=== PATIENT | female | born 1975 | race Caucasian/White ===

== ENCOUNTER 2024-06-06 19:58 | Emergency (ER) | payer OTHER, SELFPAY ==
[2024-06-06] VITALS (11 sets, daily range): BP systolic 110–122; BP diastolic 83–87; PULSE 69–85; RESP 12–17; TEMP 36.4–36.7; O2SAT 91–97
--- NOTE | ~2024-06-06 | CT_ITS ---
EXAMINATION: CTA brain carotid DATE: 06/06/2024 21:27 INDICATION: Unresponsiveness. Dizziness. TECHNIQUE: Computed tomographic angiography (CTA) of the head was performed without and with 100 mL O mnipaque-350 intravenous contrast. CTA of the neck was performed with intravenous contrast. Automated exposure control and iterative reconstruction technique were employed. The dose-length product was 1 844.63 mGy-cm. Maximum intensity projection and volume rendered 3D-reconstructions were created by guero weathers technologist on a separate workstation. COMPARISON: None. FINDINGS: HEAD CTA: There is no intracranial hemorrhage, acute infarction, or abnormal intracranial mass lesion . The ventricles are normal in size. The paranasal sinuses are clear. The mastoid air cells are eliane l. The orbits are normal. The vertebral arteries are codominant. There is no significant stenosis of basilar artery or the posterior cerebral arteries. There is no significant stenosis of intracranial i nternal arteries or anterior or middle cerebral arteries. Anterior communicating artery is normal. Th ere is no aneurysm. Posterior communicating arteries are not identified. NECK CTA: There is mild emphysema. There are innumerable nodules in the lungs measuring up to 3 mm, l ikely benign. There are no pathologically enlarged lymph nodes. There is no significant stenosis of t he vertebral arteries. There is plaque in the proximal internal carotid arteries. There is 12% stenos is of the proximal right internal carotid artery relative to normal distal artery lumen diameter (LION CET criteria). There is 0% stenosis of the proximal left internal carotid artery relative to normal d istal artery lumen diameter. There is moderate cervical spondylosis. IMPRESSION: 1. Normal brain. 2. No aneurysm or significant intracranial arterial stenosis. 3. 12% stenosis of the proximal right internal carotid artery relative to normal distal artery lumen diameter (NASCET criteria). 4. 0% stenosis of the proximal left internal carotid artery relative to normal distal artery lumen di ameter. Reviewed, dictated and finalized at location A. IMPRESSION: 1. Normal brain. 2. No aneurysm or significant intracranial arterial stenosis. 3. 12% stenosis of the proximal right internal carotid artery relative to eliane l distal artery lumen diameter (NASCET criteria). 4. 0% stenosis of the proximal left internal carotid artery relative to normal distal artery lumen diameter.
--- NOTE | ~2024-06-06 | XR_ITS ---
EXAMINATION: XR chest 1V DATE: 06/06/2024 21:22 INDICATION: Syncope. TECHNIQUE: A single frontal view of the chest was obtained. COMPARISON: None. FINDINGS: There is no pneumonia, pleural effusion, or pneumothorax. The heart size is normal. IMPRESSION: 1. No acute cardiopulmonary disease. Reviewed, dictated and finalized at location A.
--- NOTE | 2024-06-06 20:05 | ECG_ITS ---
Test Date: 2024-06-06 20:13:40 Measurements Intervals [place] Rate: 73 P: 60 LA: 163 QRS: -47 QRSD: 95 T: 53 QT: 400 QTc: 441 Interpretive Statements SINUS RHYTHM LEFT AXIS DEVIATION [QRS AXIS < -30] INCOMPLETE RIGHT BUNDLE BRANCH BLOCK [90+ ms QRS DURATION, TERMINAL R IN V1/V2, 40+ ms S IN I/aVL/V4/V5/V6] NONSPECIFIC T-WAVE ABNORMALITY ABNORMAL ECG No previous ECG available for comparison Electronically Signed On 06-07-2024 13:16:52 CDT by Gerardo Del Toro M.D.
--- NOTE | 2024-06-06 20:05 | PC.NURSE ---
Patient states that she and her spouse had covid last week.
--- NOTE | 2024-06-06 20:09 | ED.DIZZY ---
HPI - Dizziness General Chief Complaint: Dizziness <MARY KATE Chase Last Filed: 06/07/24 01:18> Stated Complaint: dizzy, nausea, diaphoretic, L arm tingling <MARY KATE Chase Last Filed: 06/07/24 01:18> Time Seen by Provider: 06/06/24 20:02 <MARY KATE Chase Last Filed: 06/07/24 01:18> Source: patient <MARY KATE Chase Last Filed: 06/07/24 01:18> Mode of arrival: ambulatory <MARY KATE Chase Last Filed: 06/07/24 01:18> Limitations: no limitations <MARY KATE Chase Last Filed: 06/07/24 01:18> History of Present Illness HPI Narrative: This is a 48-year-old female with PMH of HTN who presents to the ED via EMS for chief complaint dizziness pain just prior to arrival. Per EMS they were called out for patient being unresponsive, however patient quickly became responsive on arrival. EMS states that the patient has been A&O x4 for them, but diaphoretic. 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 States that whenever she sits or stands up she becomes very lightheaded and feels like she will pass out. She states that she started to feel dizzy 1-2 hours ago and it does feel like everything spinning. She also reports some ear pain. Endorses left arm tingling. states that she and her had COVID last week. Denies fevers, chills , chest pain, shortness of breath, vomiting, diarrhea, abdominal pain, urinary symptoms. <MARY KATE Chase Last Filed: 06/07/24 01:18> Related Data Allergies/Adverse Reactions: Allergies Allergy/AdvReac Type Severity Reaction Status Date / Time Penicillins Allergy Swelling Verified 06/06/24 20:04 <MARY KATE Chase Last Filed: 06/07/24 01:18> Review of Systems Review of Systems: All systems as dictated in HPI <Seng Champion PA-C - Last Filed: 06/07/24 01:18> Exam Narrative: GENERAL: Well-appearing, well-nourished, and in no acute distress. HEAD: Normocephalic, atraumatic. EYES: PERRLA and EOMI. ENT: Nares clear, no rhinorrhea or epistaxis. Mucous membranes moist. Oropharynx without tonsillar hypertrophy exudate or other lesions. NECK: Supple. No adenopathy or masses. CHEST: No respiratory distress. Clear to auscultation. No wheezes rales or rhonchi HEART: Regular rate and rhythm. No murmur heard. Normal peripheral pulses. ABDOMEN: Soft, nontender, nondistended, normal active bowel sounds. MSK: Normal range of motion. No edema. SKIN: Warm, dry, no rash. NEURO: Alert and oriented x4. Horizontal nystagmus, Worse with turning head to the right.. Negative pronator drift bilaterally No dysarthria. Head impulse test causes worsening dizziness with rotated to the right. nystagmus is horizontal and unidirectional test of skew shows no skew deviation PSYCH: Normal mood and affect. <Seng Champion PA-C - Last Filed: 06/07/24 01:18> Course Course Emergency Course: Re-evaluated the patient. Paresthesias have resolved. Not feeling overtly short of breath however nursing staff noted she was a little bit hypoxic in the 89-90 range on room air. Was placed on 1 L and saturating well. 2nd re-evaluation 2200: She is feeling improved overall. Was able to walk around the department without assistance and did not desaturate on room air. Nystagmus has improved. <Seng Champion PA-C - Last Filed: 06/07/24 01:18> DELPHI PROGRAMMER/PA Physician Supervision For this patient encounter, I reviewed the DELPHI PROGRAMMER or PA documentation, treatment plan, and medical decision making and had [id number] time with this patient. I performed all aspects of the MDM as documented. <Miley Erwin MD - Last Filed: 06/07/24 03:26> Vital Signs Vital signs: Vital Signs Temperature 97.6 F 06/06/24 19:58 Pulse Rate 73 06/06/24 19:58 Respiratory Rate 16 06/06/24 19:58 Blood Pressure 112/83 06/06/24 19:58 Pulse Oximetry 95 06/06/24 19:58 Oxygen Delivery R
[2024-06-06] MEDS: diphenhydrAMINE HCl INJ 50 MG/ML VIAL IV PUSH (20:17)
[2024-06-06] MEDS: SODIUM CHLORIDE 0.9% IV 1,000 ML 999 ML IV CONT (20:17)
[2024-06-06] MEDS: METOCLOPRAMIDE HCL INJ 10 MG/2 ML VIAL IV PUSH (20:18)
[2024-06-06 20:30] LABS: Basophils Absolute Auto 0.1 K/mm3 (0.0-0.1); Basophils Percent Auto 0.8 % (0.2-1.2); Eosinophils Absolute Auto 0.1 K/mm3 (0-0.3); Eosinophils Percent Auto 1.1 % (0-4.4); Hematocrit 46.8 % (37.0-47.0); Hemoglobin 15.6 g/dL (12.0-15.0); Immature Granulocyte Absolute 0.08 K/mm3 (0.00-0.031); Immature Granulocyte Percent A 0.7 % (0-0.5); Immature Platelet Fraction Pct 19.8 % (0.9-11.2); Lymphocytes Absolute Auto 3.11 K/mm3 (0.9-3.2); Lymphocytes Percent Auto 26.7 % (18.3-44.2); Mean Corpuscular HGB Conc 33.3 g/dl (32-36); Mean Platelet Volume 12.1 fl (7.4-10.4); Monocytes Absolute Auto 0.6 K/mm3 (0.1-0.6); Monocytes Percent Auto 5.4 % (2.6-8.5); Neutrophils Absolute Auto 7.6 K/mm3 (1.3-6.7); Neutrophils Percent Auto 65.3 % (45.5-73.1); Platelet Count Result 43 k/mm3 (150-375); Red Blood Count 5.38 M/mm3 (4.2-5.4); Red Cell Distribution Width 12.9 % (11.5-14.5); White Blood Count 11.6 K/mm3 (4.5-10.0)
[2024-06-06 20:38] LABS: Alanine Aminotransferase 25 U/L (6-35); Albumin Level 4.2 g/dL (3.5-5.1); Alkaline Phosphatase 57 U/L (38-126); Anion Gap 9 mmol/L (4-12); Aspartate Amino Transferase 26 U/L (14-36); Bilirubin,Total 0.6 mg/dL (0.2-1.3); Blood Urea Nitrogen 15 mg/dL (7-17); Calcium 9.1 mg/dL (8.4-10.2); Carbon Dioxide 27 mmol/L (22-30); Chloride 102 mmol/L (98-107); Estimated CRCL calculation 78 ml/min; Estimated Glomerular Filt Rate > 60; Glucose 107 mg/dL (65-110); INR 0.9; Potassium 3.5 mmol/L (3.4-5.0); Prothrombin Time 12.7 Seconds (11.1-14.7); Sodium 138 mmol/L (137-145)
[2024-06-06 20:43] LABS: BEDSIDEPREGUCG Negative
[2024-06-06 21:12] LABS: D Dimer < 0.27 ug/mL (<0.48); Troponin I < 0.012 ng/mL (0.000-0.034)
--- NOTE | 2024-06-06 21:56 | PC.NURSE ---
Pt's walking pulse ox stayed above 95% with HR at 100.
[2024-06-06 21:57] LABS: Add Urine Microscopic? YES; Appearance Urine Clear (Clear); Bacteria Urine None Seen /hpf; Bilirubin Urine Negative (Negative); Blood Urine 1+ (Negative); Color Urine Yellow (Yellow); Glucose Urine UA Negative (Negative); Ketones Urine Negative (Negative); Leukocyte Esterase Ur Negative LEU/UL (Negative); Need Manual Microscopic Reviewed; Nitrate Urine Negative (Negative); Non Pathogenic Casts 0-2; Protein Urine Negative (Negative); RBC Urine 0-2 /hpf (0-2); Specific Grav Ur 1.022 (1.001-1.035); Squamous Epithelial Cell Urine None Seen /hpf (Few); Urobilinogen Urine 0.2 mg/dL (<2.0); WBC Urine 0-5 /hpf (0-3); pH Urine 5.5 (5.0-9.0)
== END 2024-06-06 22:27 | disposition home or self-care (01) ==
PROVIDERS: Emergency Provider Physician Assistant
DX: H81.10 Benign paroxysmal vertigo, unspecified ear (principal); I95.1 Orthostatic hypotension; I10 Essential (primary) hypertension; Z86.16 Personal history of COVID-19; I45.10 Unspecified right bundle-branch block
CPT/HCPCS: 36415; 70496; 70498; 71045; 80053; 81001; 81025; 84484; 85025; 85055; 85380; 85610; 85730; 93005; 96361; 96374; 96375; 99284; J1200; J2765; J7030; Q9967